=== PATIENT | male | born 1950 | race Caucasian/White ===

== ENCOUNTER → 2016-08-20 | Outpatient (CLI) | payer BC ==
[~2016-08-20] MED LIST: ADULT LOW DOSE81 M1 PO; BISOPROLOL-HCT1 EAC2 PO; DILAUDID2 MG PO; GLUCOSAMINE &1 EAC1 PO; MOBIC15 MG PO; NUCYNTA75 MG PO; VYTORIN 10-201 EACH PO; ZESTRIL,PRINIVI20 MG PO; ZESTRIL20 MG PO; ZIAC 5/6.251 TABLET PO; ZOCOR40 MG PO
== END | disposition home or self-care (01) ==
DX: M17.12 Unilateral primary osteoarthritis, left knee (principal); R26.2 Difficulty in walking, not elsewhere classified; M25.562 Pain in left knee
CPT/HCPCS: 97110 GP; 97150 GO; 97161 GP; 97165 GO

== ENCOUNTER 2016-10-01 05:15 | Inpatient (IN) | payer BC ==
[~2016-10-01] VITALS: Ht 182.9 cm; Wt 93.4 kg
[~2016-10-01 05:15] MED LIST changes: +COQ-10100 MG PO; +GLUCOPHAGE500 MG PO; +IRON325 M1 PO; +MULTI-DAY VITA1 EACH PO
[2016-10-01 05:56] VITALS: BP 129/82
[2016-10-01 10:05] LABS: POINT-OF-CARE METER ID UU13113675
[2016-10-01 10:09] LABS: HEMATOCRIT 38.3 % (38.0-50.0); MCH 28.7 PG (29.0-34.0); MCHC 32.1 G/DL (30.0-36.0); MCV 89.3 FL (86-99); MEAN PLAT.VOLUME 12.2 uM^3 (9.0-12.4); PLATELET COUNT 117 K/uL (156-360); RBC DIS.WIDTH-CV 13.1 % (11.8-14.6); RBC DIS.WIDTH-SD 42.1 % (39-53); RED BLOOD COUNT 4.29 M/uL (4.00-5.50); WHITE BLOOD COUNT 5.1 K/uL (4.1-10.2)
[2016-10-01 11:54] VITALS: BP 103/59
[2016-10-01 12:02] LABS: POINT-OF-CARE METER ID UU13113712
[2016-10-01 15:44] VITALS: BP 151/77
[2016-10-01 16:26] LABS: POINT-OF-CARE METER ID UU13113712
[2016-10-01 19:58] VITALS: BP 139/73
[2016-10-01 22:00] LABS: POINT-OF-CARE METER ID UU13113712
[2016-10-02 00:25] VITALS: BP 155/84
[2016-10-02 04:20] VITALS: BP 142/76
[2016-10-02 06:46] LABS: HEMATOCRIT 35.3 % (38.0-50.0); MCV 89.1 FL (86-99)
[2016-10-02 07:27] LABS: ANION GAP 8 MEQ/L (2-14); CHLORIDE 94 MEQ/L (99-109); GFR ESTIMATE (CALCULATED) > 59 mL/min/; GLUCOSE 209 mg/dL (70-99); POTASSIUM 4.2 MEQ/L (3.7-5.4); SAMPLE HEMOLYSIS CHECK 0; SAMPLE ICTERIC CHECK 0; SAMPLE LIPEMIA CHECK 0; SODIUM 130 MEQ/L (136-147); UREA NITROGEN (BUN) 18 mg/dL (9-23)
[2016-10-02 08:00] VITALS: BP 152/78
[2016-10-02 11:14] LABS: POINT-OF-CARE METER ID UU13113712
[2016-10-02 11:56] VITALS: BP 134/72
[2016-10-02 15:55] VITALS: BP 123/74
[2016-10-02 16:28] LABS: POINT-OF-CARE METER ID UU13113712
[2016-10-02 20:12] VITALS: BP 102/62
[2016-10-02 21:43] LABS: POINT-OF-CARE METER ID UU13113712
[2016-10-03 00:09] VITALS: BP 114/55
[2016-10-03 04:08] VITALS: BP 112/63
[2016-10-03 05:14] LABS: HEMATOCRIT 29.1 % (38.0-50.0)
[2016-10-03 06:17] LABS: ANION GAP 9 MEQ/L (2-14); CHLORIDE 94 MEQ/L (99-109); GFR ESTIMATE (CALCULATED) > 59 mL/min/; GLUCOSE 187 mg/dL (70-99); SAMPLE HEMOLYSIS CHECK 0; SAMPLE ICTERIC CHECK 0; SAMPLE LIPEMIA CHECK 0; SODIUM 128 MEQ/L (136-147); UREA NITROGEN (BUN) 20 mg/dL (9-23)
[2016-10-03 07:36] LABS: POINT-OF-CARE METER ID UU13113712
[2016-10-03 08:00] VITALS: BP 135/67
[2016-10-03] MEDS ORDERED: ENDOCET 5-3251 EACH PO (08:08)
[2016-10-03] MEDS ORDERED: CELECOXIB200 MG PO (08:08)
[2016-10-03] MEDS ORDERED: SENNA PLUS TAB1 EACH PO (08:08)
[2016-10-03] MEDS ORDERED: LOVENOX40 MG/0.4 SC (08:08)
[2016-10-03 11:29] LABS: POINT-OF-CARE METER ID UU13113712
[2016-10-03 11:40] VITALS: BP 119/57
[2016-10-03 15:31] VITALS: BP 109/68
[2016-10-03 16:03] LABS: POINT-OF-CARE METER ID UU13113712
[2016-10-03 16:22] VITALS: BP 120/57
[2016-10-03 22:23] LABS: POINT-OF-CARE METER ID UU14188577
[2016-10-04 00:20] VITALS: BP 131/70
[2016-10-04 07:32] VITALS: BP 128/73
[2016-10-04 08:04] LABS: POINT-OF-CARE METER ID UU14188577
[2016-10-04 08:57] LABS: HEMATOCRIT 25.2 % (38.0-50.0); MCH 29.3 PG (29.0-34.0); MCHC 33.3 G/DL (30.0-36.0); MCV 87.8 FL (86-99); MEAN PLAT.VOLUME 11.2 uM^3 (9.0-12.4); PLATELET COUNT 107 K/uL (156-360); RBC DIS.WIDTH-CV 13.2 % (11.8-14.6); RBC DIS.WIDTH-SD 42.5 % (39-53); WHITE BLOOD COUNT 6.3 K/uL (4.1-10.2)
[2016-10-04 08:59] LABS: RED BLOOD COUNT 2.87 M/uL (4.00-5.50)
[2016-10-04 10:00] LABS: ANION GAP 7 MEQ/L (2-14); CHLORIDE 98 MEQ/L (99-109); GFR ESTIMATE (CALCULATED) > 59 mL/min/; GLUCOSE 223 mg/dL (70-99); POTASSIUM 4.1 MEQ/L (3.7-5.4); SAMPLE HEMOLYSIS CHECK 0; SAMPLE ICTERIC CHECK 0; SAMPLE LIPEMIA CHECK 0; SODIUM 132 MEQ/L (136-147); UREA NITROGEN (BUN) 16 mg/dL (9-23)
[2016-10-04 12:25] LABS: POINT-OF-CARE METER ID UU14188577
== END 2016-10-04 14:51 | DRG 470 ==
LOC: 2SOUTH 05:15 → 3WEST 11:28 → 3EAST 10-03 16:07
PROVIDERS: Internal Medicine; Nurse Practitioner Adult Health; Orthopaedic Surgery; Physician Assistant
PROC: 0SRD0J9 Replacement of Left Knee Joint with Synthetic Substitute, Cemented, Open Approach (ICD-10-PCS; principal; 2016-10-01)
DX: M17.12 Unilateral primary osteoarthritis, left knee (principal); E87.1 Hypo-osmolality and hyponatremia; I10 Essential (primary) hypertension; E78.5 Hyperlipidemia, unspecified; E11.9 Type 2 diabetes mellitus without complications; R00.0 Tachycardia, unspecified; R26.9 Unspecified abnormalities of gait and mobility
CPT/HCPCS: 73560; 80048; 82436; 82948; 83930; 83935; 84300; 84443; 85014; 85018; 85027; 93005; 97530 GO; J0131; J1170; J1200; J1650; J1815; J2250; J2405; J7030; J7050

== ENCOUNTER 2017-07-11 08:25 | Day surgery (SDC) | payer OTHER, MEDICARE ==
[~2017-07-11] VITALS: Ht 180.3 cm; Wt 92.8 kg
[~2017-07-11 08:25] MED LIST changes: +CELECOXIB200 MG PO; +CYANOCOBAL1000 MCG/2 IM; +ENDOCET 5-3251 EACH PO; +GLUCOSAMINE SU500 M1 PO; +LOVENOX40 MG/0.4 SC; +SENNA PLUS TAB1 EACH PO; +ZIAC 10/6.251 TABLET PO
[2017-07-11 09:40] LABS: POINT-OF-CARE METER ID UU13113696
[2017-07-11 15:50] VITALS: BP 133/84
[2017-07-11 19:39] VITALS: BP 138/72
[2017-07-11 23:38] VITALS: BP 117/66
[2017-07-12 05:19] VITALS: BP 136/73
[2017-07-12 05:26] LABS: EOSINOPHIL (%) 1.6 % (0-5); EOSINOPHIL COUNT 0.1 K/uL (0-0.3); HEMATOCRIT 38.2 % (38.0-50.0); IMMATURE GRANULOCYTE (%) 0.3 % (0.0-0.7); INSTRUMENT ABS NEUTROPHIL CT 4.1 K/uL; LYMPHOCYTE COUNT 1.5 K/uL (1.0-2.8); MCH 28.9 PG (29.0-34.0); MCHC 33.2 G/DL (30.0-36.0); MEAN PLAT.VOLUME 12.1 uM^3 (9.0-12.4); MONOCYTE (%) 7.4 % (3-12); MONOCYTE COUNT 0.5 K/uL (0-0.8); NEUTROPHIL (%) 66.7 % (45-76); NEUTROPHIL COUNT 4.1 K/uL (1.8-6.4); PLATELET COUNT 114 K/uL (156-360); RBC DIS.WIDTH-CV 12.4 % (11.8-14.6); RBC DIS.WIDTH-SD 39.5 % (39-53); RED BLOOD COUNT 4.39 M/uL (4.00-5.50); WHITE BLOOD COUNT 6.2 K/uL (4.1-10.2)
[2017-07-12 05:43] LABS: ANION GAP 9 MEQ/L (2-14); CHLORIDE 107 MEQ/L (99-109); GFR ESTIMATE (CALCULATED) > 59 mL/min/; GLUCOSE 101 mg/dL (70-99); POTASSIUM 3.7 MEQ/L (3.7-5.4); SAMPLE HEMOLYSIS CHECK 0; SAMPLE ICTERIC CHECK 0; SAMPLE LIPEMIA CHECK 0; SODIUM 142 MEQ/L (136-147); UREA NITROGEN (BUN) 11 mg/dL (9-23)
[2017-07-12 07:41] VITALS: BP 136/79
[2017-07-12 11:22] VITALS: BP 130/78
[2017-07-12] MEDS ORDERED: EFFIENT10 MG PO (15:19)
[2017-07-12] MEDS ORDERED: ASPIR-LOW81 MG PO (15:19)
== END 2017-07-12 16:08 | disposition home or self-care (01) ==
LOC: CATH 08:25 → 2SOUTH 11:30 → ENRESERV 11:36 → 4EAST 15:41
PROVIDERS: Internal Medicine Cardiovascular Disease
DX: I25.119 Atherosclerotic heart disease of native coronary artery with unspecified angina pectoris (principal); I25.82 Chronic total occlusion of coronary artery; I10 Essential (primary) hypertension; E11.9 Type 2 diabetes mellitus without complications; E78.5 Hyperlipidemia, unspecified; Z79.84 Long term (current) use of oral hypoglycemic drugs
CPT/HCPCS: 80048; 82948; 85025; 93005; C1725; C1769; C1874; C1887; G0378; J0153; J1644; J2250; J3010